=== PATIENT | male | born 1990 | race Caucasian/White ===

== ENCOUNTER 2020-08-21 16:58 | Emergency (ER) | payer SELFPAY ==
[~2020-08-21] VITALS: Ht 180.3 cm; Wt 85.0 kg
--- NOTE | 2020-08-21 17:20 | NUR ---
PT WITH OBVIOUS DEFORMITY TO L FOREARM. NO LACERATION. ERP AT BS NOW.
[2020-08-21] MEDS ORDERED: HYDROmorphone 2 MG/ML, 1ML ONE (17:25)
[2020-08-21] MEDS ORDERED: ONDANSETRON ODT 4 MG ONE (17:26)
--- NOTE | 2020-08-21 17:28 | NUR ---
XR AT BS.
[2020-08-21] MEDS ORDERED: ONDANSETRON ODT 4 MG PO ONE (17:30)
[2020-08-21] MEDS ORDERED: HYDROmorphone 2 MG/ML, 1ML IM ONE (17:30)
--- NOTE | 2020-08-21 17:46 | NUR ---
PT MEDICATED FOR PAIN. UNDERSTANDS POC.
--- NOTE | 2020-08-21 18:21 | NUR ---
ERP WAS IN FOR RECHECK, CONSULTING WITH ORTHO. PT REPORTS LAST MEAL AT 1300, LAST DRINK OF WATER AT 1600.
[2020-08-21] MEDS ORDERED: PROPOFOL 10 MG/ML, 20ML ONE ×2 (18:34→19:19)
--- NOTE | 2020-08-21 19:37 | NUR ---
L RADIAL HEAD REDUCTION DONE BY ERP WITH MODERATE SEDATION. PT AWAKE, DROWSY NOW. L LONG ARM SPLINT APPLIED BY HARD[employer]OD FALLER AND ERP. Addendum: 08/21/20 at 2100 by HBENSON SLING PROVIDED. CMS TO L ARM INTACT.
--- NOTE | 2020-08-21 19:48 | NUR ---
WATER PROVIDED TO PT. SU AT FOR RECHECK.
[2020-08-21] MEDS ORDERED: HYDROmorphone 2 MG/ML, 1ML IVPush PRN (20:00)
[2020-08-21] MEDS ORDERED: PROPOFOL 10 MG/ML, 20ML IVPush ONE (20:00)
[2020-08-21 20:32] VITALS: BP 119/75
--- NOTE | 2020-08-21 20:59 | NUR ---
D/C INSTRUCTIONS, MEDS & F/U APPT RV'WD WITH PT AND GIRLFRIEND, THEY VERBALIZE UNDERSTANDING. RX GIVEN X1. PT AMBULATED OUT OF ED WITH GIRLFRIEND WITHOUT DIFFICULTY.
== END 2020-08-21 21:00 | disposition home or self-care (01) ==
LOC: ED 17:28
DX: S52.102A Unspecified fracture of upper end of left radius, initial encounter for closed fracture (principal); S52.002A Unspecified fracture of upper end of left ulna, initial encounter for closed fracture; X58.XXXA Exposure to other specified factors, initial encounter; Y93.89 Activity, other specified; Y92.89 Other specified places as the place of occurrence of the external cause; Y99.8 Other external cause status
CPT/HCPCS: 24620; 73070; 73080; 73090; 96372; 96374; 99152; 99153; 99285; J1170; J2704; Q0162; 25605

== ENCOUNTER 2020-08-26 05:44 | Day surgery (SDC) | payer SELFPAY ==
[~2020-08-26] VITALS: Ht 180.3 cm; Wt 83.6 kg
[2020-08-26] MEDS ORDERED: NEOSPORIN OINT, 15GM ONE (06:26)
[2020-08-26] MEDS ORDERED: BUPIVACAINE/PF 0.5% ONE (06:26)
[2020-08-26] MEDS ORDERED: CHLORHEXIDINE 15 ML UDC MM ONE (06:30)
[2020-08-26] MEDS ORDERED: LACTATED RINGERS 1,000 ML IV SCH (06:30)
[2020-08-26 06:45] VITALS: BP 142/84
[2020-08-26] MEDS ORDERED: HYDR-1067 PO (06:45)
[2020-08-26] MEDS ORDERED: MIDAZOLAM 1 MG/ML, 2ML ONE (06:54)
[2020-08-26] MEDS ORDERED: FENTANYL PF 100 MCG/2ML ONE ×5 (06:54→09:38)
[2020-08-26] MEDS ORDERED: DEXAMETHASONE 4 MG/ML, 5ML ONE (07:14)
[2020-08-26] MEDS ORDERED: PROPOFOL 10 MG/ML, 20ML ONE (07:14)
[2020-08-26] MEDS ORDERED: CEFAZOLIN 1,000 MG ONE (07:14)
[2020-08-26] MEDS ORDERED: KETOROLAC 30 MG/1 ML ONE (07:14)
[2020-08-26] MEDS ORDERED: ONDANSETRON 2MG/ML, 2ML IVPush PRN (08:00)
[2020-08-26] MEDS ORDERED: ACETAMINOPHEN 325 MG TABLET PO PRN (08:00)
[2020-08-26] MEDS ORDERED: hydrALAzine 20 MG/ML, 1ML IV PRN (08:00)
[2020-08-26] MEDS ORDERED: HYDROmorphone 1 MG/ML, 1ML INJ IVPush PRN (08:00)
[2020-08-26] MEDS ORDERED: LABETALOL 5MG/ML, 20ML IV PRN (08:00)
[2020-08-26] MEDS ORDERED: OXYcodone 5 MG/5 ML ORAL.SOL UDC PO PRN (08:00)
[2020-08-26] MEDS ORDERED: MEPERIDINE/PF 25MG/ML,1ML ONE (09:03)
[2020-08-26] MEDS: MEPERIDINE/PF 25MG/0.5ML IVPush PRN ×2 (09:04→09:10)
[2020-08-26] MEDS ORDERED: OXYcodone 5 MG/5 ML ORAL.SOL UDC ONE (09:20)
[2020-08-26] MEDS ORDERED: ACETAMINOPHEN 650 MG/20.3 ML UDC ONE (09:20)
[2020-08-26] MEDS: FENTANYL PF 100 MCG/2ML IV PRN ×4 (09:31→10:00)
== END 2020-08-26 11:11 | disposition home or self-care (01) ==
LOC: OUT 05:44 → MERGE 07:30 → OUT 11:11
PROVIDERS: ATTEND Orthopaedic Surgery
DX: S52.272A Monteggia's fracture of left ulna, initial encounter for closed fracture (principal); W19.XXXA Unspecified fall, initial encounter; Y93.89 Activity, other specified; Y92.89 Other specified places as the place of occurrence of the external cause; Y99.8 Other external cause status; Z79.899 Other long term (current) drug therapy; Z72.0 Tobacco use; Z72.89 Other problems related to lifestyle; Z20.828 Contact with and (suspected) exposure to other viral communicable diseases
CPT/HCPCS: 24635; 73090; 87635; C1713; J0690; J1100; J1885; J2175; J2250; J2704; J3010; J7120; 76000